=== PATIENT | male | born 1995 | race Caucasian/White ===

== ENCOUNTER 2023-01-11 03:24 | Emergency (ER) | payer SELFPAY ==
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
[2023-01-11 03:46] VITALS: BP 138/87; PULSE 86; RESP 16; TEMP 37.3; O2SAT 100; BMI 20.7
[2023-01-11 06:43] VITALS: BP 111/69; PULSE 56; RESP 16; TEMP 36.7; O2SAT 98
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
[2023-01-11 08:29] VITALS: BP 99/66; PULSE 53; RESP 16; TEMP 36.8; O2SAT 99
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
== END 2023-01-11 08:57 | disposition home or self-care (01) ==
PROVIDERS: Emergency Provider Emergency Medicine
DX: S09.90XA Unspecified injury of head, initial encounter (principal); S02.2XXA Fracture of nasal bones, initial encounter for closed fracture; S10.93XA Contusion of unspecified part of neck, initial encounter; S50.812A Abrasion of left forearm, initial encounter; S10.91XA Abrasion of unspecified part of neck, initial encounter; Y04.2XXA Assault by strike against or bumped into by another person, initial encounter; Y93.89 Activity, other specified; Y92.9 Unspecified place or not applicable; Y99.9 Unspecified external cause status
CPT/HCPCS: 70450; 70486; 99284